=== PATIENT | male | born 1980 | race Caucasian/White ===

== ENCOUNTER 2017-06-10 10:36 | Emergency (ER) | payer MEDICAID, OTHER ==
[~2017-06-10] VITALS: Ht 167.6 cm; Wt 94.3 kg
[2017-06-10] MEDS ORDERED: IBUP-1022 PO (10:52)
[2017-06-10] MEDS ORDERED: ALBUTEROL SULFATE 2.5 MG/0.5 ML INH NEB SOLN NEB ONE (12:30)
[2017-06-10] MEDS ORDERED: MUCI600T37 PO (13:29)
[2017-06-10 13:35] VITALS: BP 134/82
== END 2017-06-10 13:37 | disposition home or self-care (01) ==
LOC: M ED 10:36
DX: J06.9 Acute upper respiratory infection, unspecified (principal); Z88.0 Allergy status to penicillin

== ENCOUNTER → 2017-07-21 | Outpatient (REF) | payer OTHER | LOC: M SFHCLERA 14:17 | DX: J02.9 Acute pharyngitis, unspecified (principal) ==

== ENCOUNTER → 2017-10-25 | Outpatient (CLI) | payer OTHER | LOC: M LRY 13:24 | DX: R50.9 Fever, unspecified (principal) | CPT/HCPCS: 71046 ==

== ENCOUNTER → 2017-10-25 | Outpatient (REF) | payer OTHER | LOC: M SFHCLERA 13:01 | DX: R50.9 Fever, unspecified (principal) ==

== ENCOUNTER 2020-05-16 19:25 | Emergency (ER) | payer OTHER ==
[~2020-05-16] VITALS: Ht 167.6 cm; Wt 89.9 kg
[~2020-05-16 19:25] MED LIST: IBUP-1022 PO; MUCI600T37 PO
[2020-05-16] MEDS ORDERED: KETO10TAB PO (20:04)
[2020-05-16] MEDS ORDERED: CYCL-707 PO (20:04)
[2020-05-16] MEDS ORDERED: CYCLOBENZAPRINE 10MG TABLET PO ONE (20:15)
[2020-05-16 20:32] VITALS: BP 118/65
== END 2020-05-16 20:43 | disposition home or self-care (01) ==
LOC: M ED 19:25
DX: S39.012A Strain of muscle, fascia and tendon of lower back, initial encounter (principal); X58.XXXA Exposure to other specified factors, initial encounter; Y92.89 Other specified places as the place of occurrence of the external cause; Y93.89 Activity, other specified; Y99.8 Other external cause status; Z88.0 Allergy status to penicillin